=== PATIENT | male | born 1995 | race Caucasian/White ===

== ENCOUNTER 2017-08-10 00:05 | Emergency (ER) | payer OTHER ==
[~2017-08-10 00:05] MED LIST: IBU600 PO; NO CURRENT MEDS
[2017-08-10 00:08] VITALS: BP 150/76
--- NOTE | 2017-08-10 00:27 | ER Report ---
History and Physical Time Seen By MD: 00:26 Hx. of Stated Complaint: PATIENT SHUT HIS RIGHT THUMB IN HIS CAR DOOR AROUND 1999, HE HAS BLOOD BLISTER UNDER NAIL ON RIGHT THUMB, PATIENT HAVING A LOT PAIN IN FINGER SINCE. PATIENT WANTS TO GET IT CHECKED TO SEE IF IT IS BROKE. HPI/ROS CHIEF COMPLAINT: Thumb shut in car door HISTORY OF PRESENT ILLNESS: This is a 22 year old male. He shut his left thumb in car door tonight. Pain in the proximal nail and interphalangeal joint. Hurts to move. Normal sensation. Some blood under the proximal nail. He was concerned about possible fracture. Allergies: Coded Allergies: No Known Allergies (Verified Allergy, Mild, 08/10/17) Home Meds Discontinued Reported Medications Ibuprofen (Motrin) 600 Mg Tab, 600 MG PO TID for 3 Days, 0 Refills 10/01/08 Reviewed Nurses Notes: Yes Constitutional Vital Sign - Last 24 Hours 08/10/17 00:08 Temp 97.6 Pulse 99 Resp 16 B/P (MAP) 150/76 Pulse Ox 93 O2 Delivery Room Air Physical Exam General: Alert, no distress. Musculoskeletal: Normal range of motion, but has pain associated. Pain with palpation over the interphalangeal joint up to the base of the nail. Neuro: normal sensation. Normal motor. Cardiovascular: Normal cap refill. Skin: Subungual hematoma. No skin breakdown. Medical Decision Making EKG/Imaging Imaging FINGER RIGHT THUMB Indication: Trauma. Comparison: None Available Findings: Single view of the right hand. 3 views of the right thumb. No evidence of acute fracture, dislocation, or radiopaque foreign body. Normal mineralization, joint spaces, and alignment. IMPRESSION: No acute osseous abnormality of the right thumb. Report Dictated By: Aristeo Craft MD at 08/10/2017 1:02 AM ED Course/Re-evaluation ED Course Imaging results reviewed with the patient. Negative for fracture. Conservative management discussed. Decision to Disposition Date: Aug 10, 2017 Decision to Disposition Time: 01:14 Depart Departure Latest Vital Signs Vital Signs Date Time Temp Pulse Resp B/P (MAP) Pulse Ox O2 Delivery O2 Flow Rate FiO2 08/10/17 00:08 97.6 99 16 150/76 93 Room Air Impression: Primary Impression: Contusion of thumb, left Condition: Improved Disposition: HOME OR SELF-CARE Referrals: EASTON CASTELLANO MD (PCP) New Scripts No Active Prescriptions or Reported Meds Patient Instructions: Contusion in Adults (ED) Additional Instructions: Ibuprofen 200mg over the counter tablets, take 4 tablets three times a day with food. Apply ice 20 minutes every 1-2 hours while awake. Gentle range of motion exercises Problem Qualifiers Primary Impression: Contusion of thumb, left Encounter type: initial encounter Damage to nail status: without damage Qualified Codes: S60.012A - Contusion of left thumb without damage to nail, initial encounter JOSE VENTURA MD Aug 10, 2017 00:27
--- NOTE | 2017-08-10 01:09 | RADIOLOGY IMAGING REPORT ---
FACILITY: [facility] PATIENT NAME: Collins Goodson : 1995 MR: [id number] V: [id number] EXAM DATE: ORDERING PHYSICIAN: JOSE VENTURA TECHNOLOGIST: Location: [facility] - [place] Patient: Collins Goodson : 1995 Visit/Account:[id number] Date of Sevice: 08/10/2017 FINGER RIGHT THUMB Indication: Trauma. Comparison: None Available Findings: Single view of the right hand. 3 views of the right thumb. No evidence of acute fracture, dislocation, or radiopaque foreign body. Normal mineralization, joint spaces, and alignment. IMPRESSION: No acute osseous abnormality of the right thumb. Report Dictated By: Aristeo Craft MD at 08/10/2017 1:02 AM Report E-Signed By: Aristeo Craft MD at 08/10/2017 1:05 AM [id number]
== END 2017-08-10 01:16 | disposition home or self-care (01) ==
LOC: ER 00:14
DX: S60.012A Contusion of left thumb without damage to nail, initial encounter (principal); W23.0XXA Caught, crushed, jammed, or pinched between moving objects, initial encounter
CPT/HCPCS: 99283